=== PATIENT | female | born 1955 | race Caucasian/White ===

== ENCOUNTER → 2017-03-02 | Outpatient (CLI) | payer MEDICARE, MEDICAID ==
[~2017-03-02] MED LIST: CELEXA40 MG PO; ROBITUSSIN AC 10 MG/ PO; SERAQUEL PO; VIBRAMYCIN100 MG PO
== END | disposition home or self-care (01) ==
LOC: CT 03-01 08:00
DX: R91.8 Other nonspecific abnormal finding of lung field (principal); Z87.891 Personal history of nicotine dependence

== ENCOUNTER → 2017-03-25 | Outpatient (CLI) | payer MEDICARE, MEDICAID ==
[2017-03-25 13:02] LABS: HEMATOCRIT 38.7 % (37.0-47.0); HEMOGLOBIN 12.8 g/dl (12.0-16.0); MEAN CELL VOLUME 88.6 fl (81.0-99.0); MEAN CORPUSCULAR HGB 29.3 pg (27.0-31.0); MEAN CORPUSCULAR HGB CONC 33.1 g/dl (33.0-37.0); MEAN PLATELET VOLUME 9.7 fl (9.6-12.3); RED BLOOD COUNT 4.37 10*6/uL (4.10-5.10); RED CELL DISTRI WIDTH 11.9 % (0-14.5); WHITE BLOOD COUNT 6.8 10*3/uL (4.8-10.8)
[2017-03-25 13:33] LABS: ALBUMIN 3.7 gm/dl (3.1-4.5); ALKALINE PHOSPHATASE 120 U/L (45-117); BUN 13 mg/dl (7-24); CHLORIDE 101 mmol/L (98-107); CHOLESTEROL 165 mg/dL (<200); CREATININE 0.93 mg/dL (0.55-1.02); HDL CHOLESTEROL 66 mg/dl (40-60); LDL CHOLESTEROL 84 mg/dL (9-159); POTASSIUM 4.1 mmol/L (3.5-5.1); SGOT/AST 12 IU/L (3-35); SGPT/ALT 29 U/L (12-78); SODIUM 137 mmol/L (136-145); TOTAL PROTEIN 8.2 gm/dL (6.4-8.2); TRIGLYCERIDES 73 mg/dl (<150); VLDL CHOLESTEROL 15 mg/dL (6-40)
== END ==
LOC: LAB 12:35
PROVIDERS: Family Medicine
DX: E78.00 Pure hypercholesterolemia, unspecified (principal); E55.9 Vitamin D deficiency, unspecified; F03.90 Unspecified dementia, unspecified severity, without behavioral disturbance, psychotic disturbance, mood disturbance, and anxiety; R05 Cough; E74.00 Glycogen storage disease, unspecified; F41.1 Generalized anxiety disorder; Z87.891 Personal history of nicotine dependence

== ENCOUNTER 2017-05-12 09:43 | Emergency (ER) | payer MEDICARE, MEDICAID ==
[~2017-05-12] VITALS: Wt 67.1 kg
[2017-05-12 09:55] VITALS: BP 130/79
[2017-05-12] MEDS ORDERED: WELLBUTRIN XL150 MG PO (10:06)
[2017-05-12 10:07] LABS: BASO % 0.4 % (0.0-1.0); EOS # 0.1 10*3/uL (0.0-0.4); EOS % 1.9 % (1.0-4.0); HEMATOCRIT 41.4 % (37.0-47.0); HEMOGLOBIN 13.5 g/dl (12.0-16.0); LYMPH % 18.4 % (27.0-41.0); MEAN CELL VOLUME 89.2 fl (81.0-99.0); MEAN CORPUSCULAR HGB 29.1 pg (27.0-31.0); MEAN CORPUSCULAR HGB CONC 32.6 g/dl (33.0-37.0); MEAN PLATELET VOLUME 10.2 fl (9.6-12.3); MONO # 0.4 10*3/uL (0.1-1.0); MONO % 7.8 % (3.0-9.0); NEUT # 3.9 10*3/uL (2.3-7.9); NEUT % 71.3 % (47.0-73.0); PLATELET COUNT AUTOMATED 199 10*3/uL (130-400); RED BLOOD COUNT 4.64 10*6/uL (4.10-5.10); RED CELL DISTRI WIDTH 12.4 % (0-14.5); WHITE BLOOD COUNT 5.4 10*3/uL (4.8-10.8)
[2017-05-12] MEDS ORDERED: CENTRUM SILVER1 EACH PO (10:08)
[2017-05-12] MEDS ORDERED: PROTONIX40 MG PO (10:08)
[2017-05-12 10:15] LABS: ACT PARTIAL THROMBO TIME 23.1 SECONDS (20.8-31.5); INTERNATIONAL NORM RATIO 0.9 (2.0-3.5)
[2017-05-12 10:25] LABS: ALBUMIN 3.8 gm/dl (3.1-4.5); ALKALINE PHOSPHATASE 97 U/L (45-117); BUN 10 mg/dl (7-24); CHLORIDE 103 mmol/L (98-107); CREATININE 0.97 mg/dL (0.55-1.02); LIPASE 158 U/L (73-393); POTASSIUM 4.2 mmol/L (3.5-5.1); SGOT/AST 9 IU/L (3-35); SGPT/ALT 19 U/L (12-78); SODIUM 138 mmol/L (136-145); TOTAL PROTEIN 7.3 gm/dL (6.4-8.2)
[2017-05-12 10:27] LABS: TROPONIN I < 0.015 ng/ml (<0.045)
== END 2017-05-12 11:25 | disposition home or self-care (01) ==
LOC: ED 09:43
PROVIDERS: Physician Assistant
DX: K21.9 Gastro-esophageal reflux disease without esophagitis (principal); Z79.899 Other long term (current) drug therapy

== ENCOUNTER → 2017-05-26 | Outpatient (CLI) | payer MEDICARE, MEDICAID ==
[~2017-05-26] MED LIST changes: +CENTRUM SILVER1 EACH PO; +PROTONIX40 MG PO; +WELLBUTRIN XL150 MG PO
== END | disposition home or self-care (01) ==
LOC: CT 10:53
DX: R91.8 Other nonspecific abnormal finding of lung field (principal)

== ENCOUNTER 2017-08-15 12:36 | Emergency (ER) | payer MEDICARE, MEDICAID ==
[~2017-08-15] VITALS: Wt 67.1 kg
[2017-08-15 12:41] VITALS: BP 150/108
[2017-08-15 13:11] LABS: BILIRUBIN NEGATIVE (NEGATIVE); BLOOD NEGATIVE (NEGATIVE); CLARITY CLEAR (CLEAR); COLOR YELLOW (YELLOW); GLUCOSE NEGATIVE (NEGATIVE); KETONE NEGATIVE (NEGATIVE); LEUKO ESTERASE NEGATIVE (NEGATIVE); NITRITE NEGATIVE (NEGATIVE); UROBILINOGEN 0.2 E.U./dl (0.2-1.0)
[2017-08-15 13:19] LABS: URINE AMPHETAMINES < 1000 (1000ng/ml); URINE BARBITURATES < 200 (200ng/ml); URINE BENZODIAZEPINES < 200 (200ng/ml); URINE CANNABINOIDS (THC) < 50 (50ng/ml); URINE COCAINE < 300 (300ng/ml); URINE METHADONE < 300 (300ng/ml); URINE OPIATES < 300 (300ng/ml)
[2017-08-15 13:20] LABS: BASO % 0.5 % (0.0-1.0); EOS # 0.1 10*3/uL (0.0-0.4); HEMATOCRIT 38.9 % (37.0-47.0); LYMPH # 1.4 10*3/uL (1.3-4.4); LYMPH % 21.8 % (27.0-41.0); MEAN CORPUSCULAR HGB 29.7 pg (27.0-31.0); MEAN CORPUSCULAR HGB CONC 33.4 g/dl (33.0-37.0); MEAN PLATELET VOLUME 10.2 fl (9.6-12.3); MONO # 0.5 10*3/uL (0.1-1.0); MONO % 7.8 % (3.0-9.0); NEUT # 4.3 10*3/uL (2.3-7.9); NEUT % 68.7 % (47.0-73.0); PLATELET COUNT AUTOMATED 196 10*3/uL (130-400); RED BLOOD COUNT 4.37 10*6/uL (4.10-5.10); RED CELL DISTRI WIDTH 12.4 % (0-14.5); WHITE BLOOD COUNT 6.3 10*3/uL (4.8-10.8)
[2017-08-15 13:23] LABS: URINE PHENCYCLIDINE < 25 (25ng/ml)
[2017-08-15 13:37] LABS: ALBUMIN 4.2 gm/dl (3.1-4.5); ALKALINE PHOSPHATASE 108 U/L (45-117); BUN 20 mg/dl (7-24); CHLORIDE 105 mmol/L (98-107); CREATININE 0.93 mg/dL (0.55-1.02); POTASSIUM 4.2 mmol/L (3.5-5.1); SGOT/AST 13 IU/L (3-35); SGPT/ALT 28 U/L (12-78); SODIUM 142 mmol/L (136-145); TOTAL PROTEIN 7.4 gm/dL (6.4-8.2)
[2017-08-15 13:38] LABS: ETHYL ALCOHOL < 3.0 mg/dl (<3); TROPONIN I < 0.015 ng/ml (<0.045)
== END 2017-08-15 14:15 | disposition left against medical advice (07) ==
LOC: ED 12:36
PROVIDERS: Emergency Medicine
DX: F31.9 Bipolar disorder, unspecified (principal); F22 Delusional disorders; Z79.899 Other long term (current) drug therapy; Z90.710 Acquired absence of both cervix and uterus

== ENCOUNTER → 2019-02-07 | Outpatient (CLI) | payer MEDICARE, MEDICAID ==
[2019-02-07 16:01] LABS: HEMATOCRIT 42.7 % (37.0-47.0); HEMOGLOBIN 13.6 g/dl (12.0-16.0); MEAN CELL VOLUME 92.6 fl (81.0-99.0); MEAN CORPUSCULAR HGB 29.5 pg (27.0-31.0); MEAN CORPUSCULAR HGB CONC 31.9 g/dl (33.0-37.0); MEAN PLATELET VOLUME 10.8 fl (9.6-12.3); RED BLOOD COUNT 4.61 10*6/uL (4.10-5.10); RED CELL DISTRI WIDTH 12.3 % (0-14.5); WHITE BLOOD COUNT 7.1 10*3/uL (4.8-10.8)
[2019-02-07 16:23] LABS: ALBUMIN 4.2 gm/dl (3.1-4.5); ALKALINE PHOSPHATASE 93 U/L (45-117); BUN 18 mg/dl (7-24); CHLORIDE 106 mmol/L (98-107); CHOLESTEROL 186 mg/dL (<200); CREATININE 0.97 mg/dL (0.55-1.02); HDL CHOLESTEROL 82 mg/dl (40-60); LDL CHOLESTEROL 88 mg/dL (9-159); SGOT/AST 8 IU/L (3-35); SGPT/ALT 21 U/L (12-78); SODIUM 140 mmol/L (136-145); TOTAL PROTEIN 7.5 gm/dL (6.4-8.2); TRIGLYCERIDES 82 mg/dl (<150); VLDL CHOLESTEROL 16 mg/dL (6-40)
== END | disposition home or self-care (01) ==
LOC: LAB 14:45
PROVIDERS: Nurse Practitioner Family
DX: E55.9 Vitamin D deficiency, unspecified (principal); E78.00 Pure hypercholesterolemia, unspecified; R53.83 Other fatigue

== ENCOUNTER → 2019-03-01 | Outpatient (CLI) | payer MEDICARE, MEDICAID | END | disposition home or self-care (01) | LOC: MAMMO 12:44 | DX: Z12.31 Encounter for screening mammogram for malignant neoplasm of breast (principal) ==

== ENCOUNTER 2019-06-10 09:07 | Emergency (ER) | payer MEDICARE, MEDICAID ==
[~2019-06-10] VITALS: Ht 160 cm; Wt 68.0 kg
[2019-06-10 10:08] LABS: BASO % 0.4 % (0.0-1.0); EOS % 0.4 % (1.0-4.0); HEMATOCRIT 40.3 % (37.0-47.0); HEMOGLOBIN 13.5 g/dl (12.0-16.0); LYMPH # 1.1 10*3/uL (1.3-4.4); MEAN CELL VOLUME 88.6 fl (81.0-99.0); MEAN CORPUSCULAR HGB 29.7 pg (27.0-31.0); MEAN CORPUSCULAR HGB CONC 33.5 g/dl (33.0-37.0); MEAN PLATELET VOLUME 10.3 fl (9.6-12.3); MONO # 0.6 10*3/uL (0.1-1.0); NEUT # 6.5 10*3/uL (2.3-7.9); PLATELET COUNT AUTOMATED 205 10*3/uL (130-400); RED BLOOD COUNT 4.55 10*6/uL (4.10-5.10); RED CELL DISTRI WIDTH 12.1 % (0-14.5); WHITE BLOOD COUNT 8.2 10*3/uL (4.8-10.8)
[2019-06-10 10:28] LABS: ALBUMIN 3.9 gm/dl (3.1-4.5); ALKALINE PHOSPHATASE 90 U/L (45-117); BUN 10 mg/dl (7-24); CHLORIDE 105 mmol/L (98-107); CREATININE 0.94 mg/dL (0.55-1.02); POTASSIUM 3.8 mmol/L (3.5-5.1); SGOT/AST 8 IU/L (3-35); SGPT/ALT 20 U/L (12-78); SODIUM 137 mmol/L (136-145); TROPONIN I < 0.015 ng/ml (<0.045)
[2019-06-10 11:07] VITALS: BP 104/64
[2019-06-10] MEDS ORDERED: PROTONIX40 MG PO (12:14)
== END 2019-06-10 12:17 | disposition home or self-care (01) ==
LOC: ED 09:07
PROVIDERS: Emergency Medicine
DX: K21.9 Gastro-esophageal reflux disease without esophagitis (principal); F31.9 Bipolar disorder, unspecified; Z79.899 Other long term (current) drug therapy

== ENCOUNTER → 2020-01-24 | Outpatient (CLI) | payer MEDICARE, MEDICAID | END | disposition home or self-care (01) | LOC: COVID19 12:05 | PROVIDERS: ATTEND Family Medicine | DX: J06.9 Acute upper respiratory infection, unspecified (principal); Z20.828 Contact with and (suspected) exposure to other viral communicable diseases ==

== ENCOUNTER → 2020-03-20 | Outpatient (CLI) | payer MEDICARE, MEDICAID | END | disposition home or self-care (01) | LOC: CT 10:43 | PROVIDERS: ATTEND Family Medicine | DX: K57.32 Diverticulitis of large intestine without perforation or abscess without bleeding (principal); Z90.710 Acquired absence of both cervix and uterus ==

== ENCOUNTER → 2020-04-13 | Outpatient (CLI) | payer MEDICARE, MEDICAID ==
[~2020-04-13] MED LIST changes: +CELEXA20 MG PO; -CELEXA40 MG PO; +VITAMIN B121000 MC1 PO; +VITAMIN C500 M4 PO; +VITAMIN D350 MC2 PO
== END | disposition home or self-care (01) ==
LOC: COVID19 12:35
PROVIDERS: ATTEND Surgery
DX: Z01.818 Encounter for other preprocedural examination (principal); Z20.822 Contact with and (suspected) exposure to COVID-19

== ENCOUNTER → 2020-04-18 | Day surgery (SDC) | payer MEDICARE, MEDICAID ==
[~2020-04-18] VITALS: Ht 160 cm; Wt 68.0 kg
[2020-04-18 06:43] VITALS: BP 109/72
[2020-04-18 07:45] VITALS: BP 95/59
[2020-04-18 08:00] VITALS: BP 102/60
[2020-04-18 08:15] VITALS: BP 98/61
[2020-04-18 08:17] VITALS: BP 98/61
== END ==
LOC: SDC 04-15 01:56
PROVIDERS: ATTEND Surgery
DX: R10.30 Lower abdominal pain, unspecified (principal); K57.30 Diverticulosis of large intestine without perforation or abscess without bleeding; K29.50 Unspecified chronic gastritis without bleeding; K21.9 Gastro-esophageal reflux disease without esophagitis; F31.9 Bipolar disorder, unspecified; J45.909 Unspecified asthma, uncomplicated; Z90.711 Acquired absence of uterus with remaining cervical stump; Z87.891 Personal history of nicotine dependence; Z79.899 Other long term (current) drug therapy

== ENCOUNTER → 2020-05-13 | Outpatient (CLI) | payer MEDICARE, MEDICAID | END | disposition home or self-care (01) | LOC: MAMMO 11:30 | PROVIDERS: ATTEND Family Medicine | DX: Z12.31 Encounter for screening mammogram for malignant neoplasm of breast (principal); N64.89 Other specified disorders of breast ==

== ENCOUNTER 2020-12-03 11:10 | Emergency (ER) | payer MEDICARE, MEDICAID ==
[~2020-12-03] VITALS: Ht 160 cm; Wt 61.2 kg
[2020-12-03 11:32] VITALS: BP 137/66
[2020-12-03] MEDS ORDERED: ROBITUSSIN DM 101 OZ PO (14:45)
[2020-12-03] MEDS ORDERED: PREDNISONE20 M1 PO (14:45)
== END 2020-12-03 14:48 | disposition home or self-care (01) ==
LOC: ED 11:10
DX: J40 Bronchitis, not specified as acute or chronic (principal); Z20.822 Contact with and (suspected) exposure to COVID-19; F32.9 Major depressive disorder, single episode, unspecified; R19.7 Diarrhea, unspecified; Z79.899 Other long term (current) drug therapy; Z90.711 Acquired absence of uterus with remaining cervical stump; Z98.51 Tubal ligation status

== ENCOUNTER → 2021-03-03 | Outpatient (CLI) | payer MEDICARE, MEDICAID ==
[~2021-03-03] MED LIST changes: +PREDNISONE20 M1 PO; +ROBITUSSIN DM 101 OZ PO
== END | disposition home or self-care (01) ==
LOC: COVID19 16:27
PROVIDERS: ATTEND Internal Medicine
DX: U07.1 COVID-19 (principal)

== ENCOUNTER → 2021-07-01 | Outpatient (CLI) | payer MEDICARE, MEDICAID | END | disposition home or self-care (01) | LOC: MAMMO 13:30 | PROVIDERS: ATTEND Family Medicine | DX: N63.20 Unspecified lump in the left breast, unspecified quadrant (principal); R92.8 Other abnormal and inconclusive findings on diagnostic imaging of breast ==

== ENCOUNTER 2021-10-22 00:40 | Emergency (ER) | payer MEDICARE, MEDICAID ==
[~2021-10-22] VITALS: Ht 160 cm; Wt 68.0 kg
[2021-10-22 01:17] VITALS: BP 145/85
[2021-10-22 01:17] LABS: BASO % 0.6 % (0.0-1.0); EOS # 0.1 10*3/uL (0.0-0.4); EOS % 1.5 % (1.0-4.0); HEMATOCRIT 40.4 % (37.0-47.0); LYMPH # 2.2 10*3/uL (1.3-4.4); LYMPH % 30.1 % (27.0-41.0); MEAN CELL VOLUME 85.4 fl (81.0-99.0); MEAN CORPUSCULAR HGB 28.5 pg (27.0-31.0); MEAN CORPUSCULAR HGB CONC 33.4 g/dl (33.0-37.0); MEAN PLATELET VOLUME 10.2 fl (9.6-12.3); MONO # 0.7 10*3/uL (0.1-1.0); MONO % 9.5 % (3.0-9.0); NEUT # 4.2 10*3/uL (2.3-7.9); NEUT % 58.2 % (47.0-73.0); PLATELET COUNT AUTOMATED 220 10*3/uL (130-400); RED BLOOD COUNT 4.73 10*6/uL (4.10-5.10); RED CELL DISTRI WIDTH 12.4 % (0-14.5); WHITE BLOOD COUNT 7.2 10*3/uL (4.8-10.8)
[2021-10-22] MEDS ORDERED: [UNRECOGNIZED DRUG - OTHER] TD (01:18)
[2021-10-22 01:37] LABS: ALKALINE PHOSPHATASE 108 U/L (45-117); BUN 13 mg/dl (7-24); CHLORIDE 107 mmol/L (98-107); POTASSIUM 3.7 mmol/L (3.5-5.1); SGOT/AST 12 IU/L (3-35); SGPT/ALT 18 U/L (12-78); SODIUM 140 mmol/L (136-145); TOTAL PROTEIN 7.3 gm/dL (6.4-8.2)
== END 2021-10-22 02:05 | disposition home or self-care (01) ==
LOC: ED 00:40
PROVIDERS: Emergency Medicine
DX: R07.89 Other chest pain (principal); Z98.51 Tubal ligation status; Z90.710 Acquired absence of both cervix and uterus; Z98.890 Other specified postprocedural states; Z79.899 Other long term (current) drug therapy

== ENCOUNTER → 2021-12-08 | Outpatient (CLI) | payer MEDICARE, MEDICAID ==
[~2021-12-08] MED LIST changes: +[UNRECOGNIZED DRUG - OTHER] TD
[2021-12-08 12:30] LABS: BASO # 0.1 10*3/uL (0.0-0.1); BASO % 0.8 % (0.0-1.0); EOS # 0.1 10*3/uL (0.0-0.4); HEMATOCRIT 43.6 % (37.0-47.0); LYMPH # 1.6 10*3/uL (1.3-4.4); LYMPH % 27.4 % (27.0-41.0); MEAN CELL VOLUME 88.1 fl (81.0-99.0); MEAN CORPUSCULAR HGB 28.7 pg (27.0-31.0); MEAN CORPUSCULAR HGB CONC 32.6 g/dl (33.0-37.0); MEAN PLATELET VOLUME 10.3 fl (9.6-12.3); MONO # 0.4 10*3/uL (0.1-1.0); MONO % 6.9 % (3.0-9.0); NEUT # 3.7 10*3/uL (2.3-7.9); NEUT % 62.4 % (47.0-73.0); PLATELET COUNT AUTOMATED 225 10*3/uL (130-400); RED BLOOD COUNT 4.95 10*6/uL (4.10-5.10); RED CELL DISTRI WIDTH 12.6 % (0-14.5); WHITE BLOOD COUNT 5.9 10*3/uL (4.8-10.8)
[2021-12-08 12:50] LABS: CHLORIDE 107 mmol/L (98-107); POTASSIUM 3.9 mmol/L (3.5-5.1); SODIUM 141 mmol/L (136-145)
[2021-12-08 13:07] LABS: ALKALINE PHOSPHATASE 118 U/L (45-117); BUN 11 mg/dl (7-24); CHOLESTEROL 180 mg/dL (<200); CREATININE 0.85 mg/dL (0.55-1.02); LDL CHOLESTEROL 82 mg/dL (9-159); SGOT/AST 6 IU/L (3-35); SGPT/ALT 23 U/L (12-78); TOTAL PROTEIN 7.2 gm/dL (6.4-8.2); TRIGLYCERIDES 217 mg/dl (<150)
== END | disposition home or self-care (01) ==
LOC: LAB 11:55
PROVIDERS: ATTEND Nurse Practitioner Family
DX: F31.9 Bipolar disorder, unspecified (principal); E55.9 Vitamin D deficiency, unspecified; Z23 Encounter for immunization; K21.9 Gastro-esophageal reflux disease without esophagitis; Z79.899 Other long term (current) drug therapy

== ENCOUNTER → 2021-12-17 | Outpatient (CLI) | payer MEDICARE, MEDICAID | END | disposition home or self-care (01) | LOC: MAMMO 12-16 13:30 → US 12-16 13:30 | PROVIDERS: ATTEND Family Medicine | DX: N63.24 Unspecified lump in the left breast, lower inner quadrant (principal); R92.8 Other abnormal and inconclusive findings on diagnostic imaging of breast ==

== ENCOUNTER 2023-07-12 02:50 | Emergency (ER) | payer MEDICARE, MEDICAID ==
[~2023-07-12] VITALS: Ht 160 cm; Wt 65.3 kg
[2023-07-12 02:59] VITALS: BP 139/91
[2023-07-12 03:32] LABS: BASO % 0.4 % (0.0-1.0); EOS # 0.2 10*3/uL (0.0-0.4); EOS % 3.5 % (1.0-4.0); HEMATOCRIT 43.7 % (37.0-47.0); LYMPH # 1.1 10*3/uL (1.3-4.4); LYMPH % 16.4 % (27.0-41.0); MEAN CELL VOLUME 88.3 fl (81.0-99.0); MEAN CORPUSCULAR HGB 28.1 pg (27.0-31.0); MEAN CORPUSCULAR HGB CONC 31.8 g/dl (33.0-37.0); MEAN PLATELET VOLUME 9.5 fl (9.6-12.3); MONO # 0.7 10*3/uL (0.1-1.0); MONO % 10.5 % (3.0-9.0); NEUT # 4.8 10*3/uL (2.3-7.9); NEUT % 69.1 % (47.0-73.0); PLATELET COUNT AUTOMATED 211 10*3/uL (130-400); RED BLOOD COUNT 4.95 10*6/uL (4.10-5.10); RED CELL DISTRI WIDTH 12.7 % (0-14.5); WHITE BLOOD COUNT 6.9 10*3/uL (4.8-10.8)
[2023-07-12 03:54] LABS: ALKALINE PHOSPHATASE 100 U/L (46-116); BUN 11 mg/dl (9-23); CHLORIDE 102 mmol/L (98-107); POTASSIUM 4.6 mmol/L (3.4-5.1); SGPT/ALT 15 U/L (5-49); TOTAL PROTEIN 7.2 gm/dL (6.0-8.0)
== END 2023-07-12 06:37 | disposition home or self-care (01) ==
LOC: ED 02:50
PROVIDERS: Emergency Medicine
DX: R07.89 Other chest pain (principal); K21.9 Gastro-esophageal reflux disease without esophagitis; F31.9 Bipolar disorder, unspecified; D64.9 Anemia, unspecified; Z98.890 Other specified postprocedural states; Z90.710 Acquired absence of both cervix and uterus